=== PATIENT | female | born 1995 | race Caucasian/White ===

== ENCOUNTER → 2018-08-31 | Outpatient (CLI) | payer OTHER | LOC: FIMAGING 10:28 | PROVIDERS: ATTEND Dentist Oral and Maxillofacial Surgery | DX: M26.69 Other specified disorders of temporomandibular joint (principal); M26.621 Arthralgia of right temporomandibular joint; M26.04 Mandibular hypoplasia | CPT/HCPCS: 78320; A9503 ==